=== PATIENT | male | born 1995 | race Caucasian/White ===

== ENCOUNTER 2019-06-04 02:31 | Emergency (ER) | payer SELFPAY ==
[~2019-06-04 02:31] MED LIST: CEFAZOLIN IV ONE; SODIUM CHLORIDE 0.9% IV ONE
[2019-06-04] MEDS: Ondansetron 4 MG/2 ML SDV IVPUSH PRN ×2 (02:31→03:10)
[2019-06-04] MEDS: HYDROmorphone 2 MG/ML SDV IVPUSH PRN ×2 (02:31→03:00)
[2019-06-04] MEDS: Sodium Chloride 0.9% 1,000 ML IV ONE ×2 (02:31→04:32)
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
== END 2019-06-04 04:45 ==
LOC: LB.ED 02:31
DX: S82.251A Displaced comminuted fracture of shaft of right tibia, initial encounter for closed fracture (principal); S82.431A Displaced oblique fracture of shaft of right fibula, initial encounter for closed fracture; S82.252B Displaced comminuted fracture of shaft of left tibia, initial encounter for open fracture type I or II; S82.432B Displaced oblique fracture of shaft of left fibula, initial encounter for open fracture type I or II; V86.92XA Unspecified occupant of snowmobile injured in nontraffic accident, initial encounter
CPT/HCPCS: 36415; 71045; 72170; 73590; 80053; 85025; 99284; 99285; A0425; A0429; J0690; J1170; J2405; J7030; J7050